=== PATIENT | male | born 1950 | race Caucasian/White ===

== ENCOUNTER 2016-10-29 19:49 | Emergency (ER) | payer OTHER ==
[~2016-10-29] VITALS: Ht 180.3 cm; Wt 114.2 kg
[~2016-10-29 19:49] MED LIST: ALL300 PO; ASPEC81 PO; ATEN-173 PO; MELO15TA3 PO; NTRGSL/4 UT
[2016-10-29 20:02] VITALS: TEMP 36.5; Ht 180.3 cm; Wt 114.2 kg
[2016-10-29] MEDS ORDERED: CHOL1000 PO (21:01)
[2016-10-29 21:06] VITALS: O2SAT 94
--- NOTE | 2016-10-29 21:26 | DIAGNOSTIC IMAGING REPORT ---
CHEST ONE VIEW PORTABLE CLINICAL HISTORY: cough COMPARISON STUDY: No previous studies for comparison. FINDINGS: The heart is mildly enlarged. There is mild central vascular prominence. There is no overt edema. There is no lobar consolidation. There is a lower left paraspinal opacity, possibly representing a tortuous aorta, although other etiologies cannot be excluded[ IMPRESSION: AP portable study. Mild vascular prominence without evidence of overt edema. No evidence of focal pulmonary consolidation. Nonspecific left paraspinal opacity, possibly secondary to a tortuous aorta Electronically signed by: Pancho Bloom M.D. 10/29/2016 9:25 PM Dictated Date/Time: 10/29/2016 9:23 PM
[2016-10-29] MEDS ORDERED: ALBUT/IPRATROP 3MG/0.5MG NEB 3 ML VIAL INH STA (21:31)
[2016-10-29 21:34] LABS: BASO % 0.4 %; BASO ABS # 0.04 K/uL (0-0.2); COMPLETE YES; EOS % 4.3 %; HEMATOCRIT 47.2 % (42-52); IG% 0.2 %; LYMPH % 27.4 %; LYMPH ABS # 2.88 K/uL (1.2-3.4); MEAN CELL VOLUME 86.4 fL (80-100); MEAN CORPUSCULAR HEMOGLOBIN 31.5 pg (25-34); MEAN CORPUSCULAR HGB CONC 36.4 g/dl (32-36); MEAN PLATELET VOLUME 11.2 fL (7.4-10.4); MONO % 8.3 %; NEUT % 59.4 %; PLATELET COUNT 192 K/uL (130-400); RED BLOOD COUNT 5.46 M/uL (4.7-6.1); WHITE BLOOD COUNT 10.52 K/uL (4.8-10.8)
[2016-10-29 21:51] LABS: ALB/GLOB RATIO 0.9 (0.9-2); ALKALINE PHOSPHATASE 111 U/L (45-117); ALT/SGPT 30 U/L (12-78); AST/SGOT 25 U/L (15-37); BLOOD UREA NITROGEN 16 mg/dl (7-18); BUN/CREATININE RATIO 14.8 (10-20); CALCIUM 9.3 mg/dl (8.5-10.1); CARBON DIOXIDE 29 mmol/L (21-32); CHLORIDE 102 mmol/L (98-107); GLUCOSE 139 mg/dl (70-99); POTASSIUM 3.8 mmol/L (3.5-5.1); SODIUM 140 mmol/L (136-145)
[2016-10-29] MEDS ORDERED: ALBUTEROL HFA 8 GM INHALER INH ONE (23:45)
[2016-10-29] MEDS ORDERED: AMOXICIL/CLAVU 875MG HOME PACK PO ONE (23:59)
[2016-10-30] MEDS ORDERED: AMOXICILLIN/CLAVULANATE TAB 875 MG TAB PO ONE ×2 (00:03→09:00)
[2016-10-30] MEDS ORDERED: AMOX875T PO (00:17)
[2016-10-30 00:33] VITALS: BP 154/85; PULSE 74; O2SAT 95
--- NOTE | 2016-10-30 02:37 | EMERGENCY ROOM VISIT NOTE ---
History Report prepared by Aditi: Familia Rae Under the Supervision of: Dr. Rudy Aleman M.D. First contact with patient: 21:09 Chief Complaint: COUGH Stated Complaint: BLOOD,MUCOUS COUGH, History of Present Illness The patient is a 66 year old male who presents to the Emergency Room with complaints of a constant worsening cough for the past few weeks. The patient additionally states that the cough and shortness of breath is worse in the morning, and he has some chest pain only during his coughing spells. Also, he states that he is coughing up some blood in the mucous that he is producing. The patient states that he has not seen anyone for the cough yet. Pt denies LOC , headache, fevers, chills, diaphoresis, visual changes, neck pain, nausea, vomiting, abdominal pain, back pain, diarrhea, melena, hematochezia, urinary symptoms, numbness, weakness, lymphadenopathy, rash, or other complaints. Source of History: patient Onset: a few weeks ago Position: other (global) Quality: other (cough) Timing: constant, worsening Associated Symptoms: + SOB, + chest pain Review of Systems See HPI for pertinent positives and negatives. A total of ten systems were reviewed and were otherwise negative. Past Medical & Surgical Medical Problems: (1) Hypertension Social History Smoking Status: Never Smoker Marital Status: Housing Status: lives with family Occupation Status: retired Current/Historical Medications Scheduled Allopurinol (Zyloprim *), 300 MG PO DAILY Amoxicillin & Pot Clavulanate (Augmentin 875-125 mg), 875 MG PO BID Aspirin Enteric Coated (Ecotrin Or Generic *), 81 MG PO DAILY Atenolol (Tenormin), 25 MG PO DAILY Cholecalciferol (Vitamin D3), 1,000 MG PO DAILY Meloxicam (Mobic), 15 MG PO DAILY Nitroglycerin (Nitrostat), 0.4 MG UT PRN Allergies Coded Allergies: No Known Allergies (Unverified , 10/29/16) Physical Exam Vital Signs Date Time Temp Pulse Resp B/P Pulse Ox O2 Delivery O2 Flow Rate FiO2 10/30/16 00:33 74 20 154/85 95 10/29/16 23:08 77 10/29/16 23:03 79 20 149/76 95 10/29/16 22:34 83 15 96 Room Air 10/29/16 22:29 80 21 97 10/29/16 22:24 76 17 94 10/29/16 22:19 78 19 95 10/29/16 22:14 79 22 94 10/29/16 22:09 81 22 94 10/29/16 22:04 74 13 96 10/29/16 21:59 73 19 98 10/29/16 21:54 70 19 98 10/29/16 21:49 69 13 98 10/29/16 21:44 71 17 99 10/29/16 21:43 72 20 99 Nebulizer 10/29/16 21:39 76 25 96 Room Air 10/29/16 21:34 75 21 96 Room Air 10/29/16 21:29 74 23 97 Room Air 10/29/16 21:24 75 19 96 Room Air 10/29/16 21:06 94 Room Air 10/29/16 21:05 133/64 10/29/16 21:04 79 18 133/64 10/29/16 20:05 93 Room Air 10/29/16 20:02 36.5 74 22 146/71 96 Room Air Physical Exam GENERAL: Awake, alert, tired-appearing, in no distress HENT: Normocephalic, atraumatic. Oropharynx unremarkable. EYES: Normal conjunctiva. Sclera non-icteric. NECK: Supple. No nuchal rigidity. FROM. No JVD. RESPIRATORY: Clear to auscultation. CARDIAC: Regular rate, normal rhythm. Extremities warm and well perfused. Pulses equal. ABDOMEN: Soft, non-distended. No tenderness to palpation. No rebound or guarding. No masses. RECTAL: Deferred. MUSCULOSKELETAL: Chest examination reveals no tenderness. The back is symmetrical on inspection without obvious abnormality. There is no CVA tenderness to palpation. No joint edema. LOWER EXTREMITIES: Chronic venous discoloration. 1+ edema bilaterally worse on the right. NEURO: Normal sensorium. No sensory or motor deficits noted. SKIN: No rash or jaundice noted. Medical Decision & Procedures ER Provider Diagnostic Interpretation: X-ray: Per my interpretation, radiologist review. CHEST ONE VIEW PORTABLE CLINICAL HISTORY: cough COMPARISON STUDY: No previous studies for comparison. FINDINGS: The heart is mildly enlarged. There is mild central vascular prominence. There is no overt edema. There is no lobar consolidation. There is a lower left paraspinal opacity, possibly representing a tortuous aorta, although other etiologies cannot be excluded[ IMPRESSION: AP portable study. Mild vascular prominence without evidence of overt edema. No evidence of focal pulmonary consolidation. Nonspecific left paraspinal opacity, possibly secondary to a tortuous aorta Electronically signed by: Pancho Bloom M.D. 10/29/2016 9:25 PM Dictated Date/Time: 10/29/2016 9:23 PM Laboratory Results 10/29/16 21:10 Red Blood Count 5.46, Mean Corpuscular Volume 86.4, Mean Corpuscular Hemoglobin 31.5, Mean Corpuscular Hemoglobin Concent 36.4, Mean Platelet Volume 11.2, Neutrophils (%) (Auto) 59.4, Lymphocytes (%) (Auto) 27.4, Monocytes (%) (Auto) 8.3, Eosinophils (%) (Auto) 4.3, Basophils (%) (Auto) 0.4, Neutrophils # (Auto) 6.26, Lymphocytes # (Auto) 2.88, Monocytes # (Auto) 0.87, Eosinophils # (Auto) 0.45, Basophils # (Auto) 0.04 10/29/16 21:10 Test 10/29/16 21:10 White Blood Count 10.52 K/uL (4.8-10.8) Red Blood Count 5.46 M/uL (4.7-6.1) Hemoglobin 17.2 g/dL (14.0-18.0) Hematocrit 47.2 % (42-52) Mean Corpuscular Volume 86.4 fL (80-100) Mean Corpuscular Hemoglobin 31.5 pg (25-34) Mean Corpuscular Hemoglobin Concent 36.4 g/dl (32-36) Platelet Count 192 K/uL (130-400) Mean Platelet Volume 11.2 fL (7.4-10.4) Neutrophils (%) (Auto) 59.4 % Lymphocytes (%) (Auto) 27.4 % Monocytes (%) (Auto) 8.3 % Eosinophils (%) (Auto) 4.3 % Basophils (%) (Auto) 0.4 % Neutrophils # (Auto) 6.26 K/uL (1.4-6.5) Lymphocytes # (Auto) 2.88 K/uL (1.2-3.4) Monocytes # (Auto) 0.87 K/uL (0.11-0.59) Eosinophils # (Auto) 0.45 K/uL (0-0.5) Basophils # (Auto) 0.04 K/uL (0-0.2) RDW Standard Deviation 42.6 fL (36.4-46.3) RDW Coefficient of Variation 13.6 % (11.5-14.5) Immature Granulocyte % (Auto) 0.2 % Immature Granulocyte # (Auto) 0.02 K/uL (0.00-0.02) Anion Gap 9.0 mmol/L (3-11) Est Creatinine Clear Calc Drug Dose 82.6 ml/min Estimated GFR () 79.5 Estimated GFR (Non- 68.6 BUN/Creatinine Ratio 14.8 (10-20) Calcium Level 9.3 mg/dl (8.5-10.1) Total Bilirubin 0.5 mg/dl (0.2-1) Aspartate Amino Transf (AST/SGOT) 25 U/L (15-37) Alanine Aminotransferase (ALT/SGPT) 30 U/L (12-78) Alkaline Phosphatase 111 U/L (45-117) Troponin I < 0.015 ng/ml (0-0.045) Total Protein 7.8 gm/dl (6.4-8.2) Albumin 3.7 gm/dl (3.4-5.0) Globulin 4.1 gm/dl (2.5-4.0) Albumin/Globulin Ratio 0.9 (0.9-2) Chemistry Specimen Hemolysis Influenza Type A Antigen Neg for Influ A (NEG) Influenza Type B Antigen Neg for Influ B (NEG) Laboratory results reviewed by me Medications Administered Medications (Trade) Dose Ordered Sig/Rashid Route Start Time Stop Time Status Last Admin Dose Admin Albuterol/ Ipratropium (Duoneb) 3 ml NOW STAT INH 10/29/16 21:31 10/29/16 21:43 DC 10/29/16 21:42 3 ML Albuterol (Ventolin Hfa Inhaler) 2 puffs NOW ONCE INH 10/29/16 23:45 10/29/16 23:46 DC 10/29/16 23:45 2 PUFFS Amoxicillin/ Clavulanate Potassium (Augmentin Tab) 875 mg BID ONCE PO 10/30/16 09:00 10/30/16 09:00 DC 10/30/16 00:09 875 MG ED Course 2129: The patient was evaluated in room A12. A complete history and physical exam was performed. 2131: Duoneb 3ml INH 2341: I reevaluated the patient, and he was feeling better after breathing treatment. I discussed results and discharge instructions: He verbalized understanding and agreement. The patient is ready for discharge. 2345: Albuterol 2 puffs INH 0900: Augmentin Tab 875mg PO Medical Decision Triage Nursing notes reviewed. The patient's presentation and history were concerning for productive cough. Etiologies such as influenza, bronchitis, pneumonia, COPD, reactive airway disease, CHF, cardiac ischemia, pulmonary embolism, pneumothorax, musculoskeletal, infections, gastrointestinal, as well as others were entertained. The patient was evaluated. Hemodynamically stable. He had a thick yellow mucus that was occasionally blood tinged when he was coughing. He produced tiny sample in the emergency department here. He was given a DuoNeb and felt much better with this. The patient underwent chest x-ray imaging. There was some congestion noted but no significant infiltrate present. His CBC , chemistry panel, and influenza testing were negative. Troponin was negative. This was ordered and protocol prior to evaluation of the patient. His symptoms are not consistent with a cardiac etiology therefore additional cardiac testing was not performed. Given the symptoms I discussed treatment with Augmentin and Ventolin MDI. The patient felt comfortable with this. He will follow-up with his primary physician. If he worsens he will come back to the emergency department for reevaluation. By the evaluation outlined above other emergent etiologies such as those listed in the differential, as well as others, were deemed relatively unlikely. The patient and were informed about the findings as listed above. All questions were answered and they were d with the treatment. Return instructions were outlined and the patient was discharged in stable condition. The patient was referred to his PCP for follow-up this week for a recheck of the current condition. The chart was completed utilizing [employer] Speech voice recognition software. Grammatical errors, random word insertions, pronoun errors, and incomplete sentences are an occasional consequence of this system due to software limitations, ambient noise, and hardware issues. Any formal questions or concerns about the content, text, or information contained within the body of this dictation should be directly addressed to the physician for clarification. Impression Primary Impression: Productive cough Additional Impression: Flu-like symptoms Scribe Attestation The scribe's documentation has been prepared under my direction and personally reviewed by me in its entirety. I confirm that the note above accurately reflects all work, treatment, procedures, and medical decision making performed by me. Departure Information Dispostion Home / Self-Care Prescriptions Amoxicillin & Pot Clavulanate (Augmentin 875-125 mg) 1 Tab Tab 875 MG PO BID for 7 Days, #14 TAB Prov: Rudy Aleman MD 10/30/16 Referrals Asad Schaefer M.D. (PCP) Forms HOME CARE DOCUMENTATION FORM, IMPORTANT VISIT INFORMATION Patient Instructions My [facility] Additional Instructions Amoxicillin Clavulanate (Augmentin) 875mg: Take one pill twice daily for 7 days for your infection. All antibiotics can cause diarrhea. If this occurs and you feel worse or it does not resolve in 1-2 days follow up with your doctor or return to the Emergency Department as this could be signs of serious underlying problems. Any medication can cause an allergic reaction, stop the pills immediately and return to the ER for rash, hives, breathing difficulties, or swelling. Albuterol Inhaler: Take 2 puffs four times daily for seven days, then as needed. Acetaminophen(Tylenol) may be used for fever or pain. Use 1000mg every six hours as needed. Avoid using more than 4000mg in a 24 hour period. AND/OR Ibuprofen(Motrin, Advil) may be used for fever or pain. Use 600mg every six hours as needed. Take with food. Avoid using more than 2400mg in a 24 hour period. Do not use 2400mg per day for more than three consecutive days without physician direction. Prolonged inappropriate use can lead to stomach upset or ulcers. Controlling your fever with Tylenol and Ibuprofen as above will make you feel better. Rest and drink plenty of fluids. Avoid strenuous activity until your symptoms resolve and your breathing returns to normal. Return to the ER for chest pain, difficulty breathing, persistent fevers, vomiting, worsening of your condition, or as needed. Follow up with your primary physician in 2-3 days for a recheck of the current condition. Problem Qualifiers
== END 2016-10-30 00:34 | disposition home or self-care (01) ==
LOC: C.EDB 19:51 → C.EDA 10-30 00:34
DX: R05 Cough (principal); R69 Illness, unspecified; I10 Essential (primary) hypertension; Z79.82 Long term (current) use of aspirin

== ENCOUNTER 2019-07-22 09:58 | Observation (INO) ==
[2019-07-22] MEDS ORDERED: NITROGLYCERIN 2% OINTMENT 30GM TUBE EXT STA (11:06)
[2019-07-22] MEDS ORDERED: ASPIRIN CHEW 324 MG PO STA (11:06)
--- NOTE | 2019-07-22 11:42 | XRay Report ---
XR chest 1V portable CLINICAL HISTORY: 69 years-old Male presenting with Chest Pain. TECHNIQUE: Portable upright AP view of the chest was obtained. COMPARISON: 10/29/2016. FINDINGS: Atherosclerosis of the aortic arch. Cardiac silhouette enlarged. Mild pulmonary vascular prominence. There may also be mild interstitial prominence and bronchial cuffing. Minimal bandlike opacity in the left lower lung. No other focal opacity. No large effusion or pneumothorax. Degenerative changes of the thoracic spine. IMPRESSION: 1. Cardiomegaly with mild volume overload and congestive change. No sindy pulmonary edema. 2. Minimal left basilar atelectasis or scarring. Electronically signed by: José Miguel Gilbert M.D. 07/22/2019 11:41 AM
[2019-07-22 11:55] LABS: Basophils # (auto) 0.02 K/uL (0-0.2); Basophils % (auto) 0.2 %; Eosinophils # (auto) 0.36 K/uL (0-0.5); Eosinophils % (auto) 3.2 %; Hematocrit (blood only) 47.7 % (42-52); Hemoglobin 17.2 g/dL (14.0-18.0); Immature Granulocytes # (auto) 0.02 K/uL (0.00-0.02); Immature Granulocytes % (auto) 0.2 %; Lymphocytes # (auto) 2.42 K/uL (1.2-3.4); Lymphocytes % (auto) 21.7 %; Mean Corpuscular Hemoglobin 31.7 pg (25-34); Mean Corpuscular Hgb Conc 36.1 g/dL (32-36); Mean Platelet Volume 11.3 fL (7.4-10.4); Monocytes # (auto) 0.76 K/uL (0.11-0.59); Monocytes % (auto) 6.8 %; Neutrophils # (auto) 7.55 K/uL (1.4-6.5); Neutrophils % (auto) 67.9 %; Platelet Count 213 K/uL (130-400); RDW Coefficient of Variation 13.6 % (11.5-14.5); RDW Standard Deviation 43.6 fL (36.4-46.3); Red Blood Count 5.42 M/uL (4.7-6.1); White Blood Count 11.13 K/uL (4.8-10.8)
[2019-07-22 12:07] LABS: INR 1.2 (0.9-1.1); Partial Thromboplastin Time 27.3 Seconds (21.0-31.0); Prothrombin Time 11.8 Seconds (9.0-12.0)
[2019-07-22 12:17] LABS: Alanine Aminotransferase 35 U/L (12-78); Aspartate Aminotransferase 24 U/L (15-37); BUN Creatinine Ratio 14.1 (10-20); Blood Urea Nitrogen 16 mg/dl (7-18); Calcium 9.9 mg/dl (8.5-10.1); Carbon Dioxide 31 mmol/L (21-32); Chloride 102 mmol/L (98-107); Creatinine Clr Calc Pharmacy 76.6 ml/min; Est GFR (Non-African American) 66.5; Glucose 123 mg/dl (70-99); Lipase 103 U/L (73-393); Potassium 3.8 mmol/L (3.5-5.1); Sodium 138 mmol/L (136-145)
[2019-07-22 12:21] LABS: Albumin Globulin Ratio 0.9 (0.9-2); Alkaline Phosphatase 133 U/L (45-117); Bilirubin,Total 1.2 mg/dl (0.2-1); Globulin 4.3 gm/dl (2.5-4.0); Total Protein 8.3 gm/dl (6.4-8.2); Troponin I < 0.015 ng/ml (0-0.045)
--- NOTE | 2019-07-22 14:23 | History & Physical Report ---
Date of Service July 22, 2019 Assessment & Plan (1) Chest pain: (2) CAD (coronary artery disease): -Admit to telemetry -Patient presenting from home with reports of worsening exertional chest pain for the past 1 week -In the ED, initial troponin negative and EKG does not show any acute ST changes -Cardiac cath 2010-nonobstructive CAD, stress echo 11/2018-negative for ischemia -Currently chest pain-free after application of topical nitro in the ED -Continue serial cardiac enzymes, resting echo -Continue topical nitro, statin, aspirin, beta-freda, ARB -Cardiology consult, Dr. Rawls notified by ED (3) Hypertension: -BP controlled, continue carvedilol, HCTZ, losartan (4) Moderate aortic valve stenosis: -Stable -Monitor volume status closely (5) KEHINDE on CPAP: -CPAP as per home settings (6) Gout: -Continue allopurinol (7) DVT prophylaxis: -SQ Lovenox History of Present Illness Chief Complaint: Chest Pain Primary Care Provider: Asad Schaefer MD 69 year old male who presents to the ED with reports of chest pain. Patient reports that he was having URI symptoms for about 6 weeks. The productive cough has resolved however patient developed chest pain over the past week. He described the pain as being located midsternum with some radiation into the left chest. Patient noted the pain to be worse while he was "doing chores" and while hunting. Pain was severe at times with radiation into the left arm and jaw at times. He had associated diaphoresis. Describes the pain as burning and aching. Has chronic exertional shortness of breath which is unchanged from baseline. Denies orthopnea and lower extremity edema. No abdominal pain, nausea, vomiting, or diarrhea. Denies fever and chills. No urinary symptoms. In the ED, topical nitro was placed on the patient and he reports he is pain free. He was also given a full dose aspirin. Initial troponin is negative, EKG does not show any acute ST changes. Patient is hemodynamically stable. Allergies Allergy/AdvReac Type Severity Reaction Status Date / Time No Known Allergies Allergy Unverified 07/22/19 11:30 Home Medications Home Medications Medication Instructions Recorded Confirmed Type allopurinol 100 mg PO DAILY 07/22/19 07/22/19 History allopurinol 300 mg PO QAM 07/22/19 07/22/19 History aspirin 81 mg PO QAM 07/22/19 07/22/19 History atorvastatin 20 mg PO HS 07/22/19 07/22/19 History carvedilol 12.5 mg PO BID 07/22/19 07/22/19 History cholecalciferol (vitamin D3) 1,000 unit PO QAM 07/22/19 07/22/19 History [Vitamin D3] citalopram 20 mg PO QAM 07/22/19 07/22/19 History hydrochlorothiazide 25 mg PO QAM 07/22/19 07/22/19 History losartan 50 mg PO QAM 07/22/19 07/22/19 History nitroglycerin 0.4 mg SUBLINGUAL UD PRN 07/22/19 07/22/19 History Past Med/Surg History Medical History CAD (coronary artery disease) Cardiac cath 2010 -nonobstructive CAD CKD (chronic kidney disease), stage II Dyslipidemia Gout Hypertension Moderate aortic valve stenosis KEHINDE on CPAP Surgical History H/O cervical spine surgery H/O repair of left rotator cuff Hx of tonsillectomy Family History (Updated 07/22/19 @ 14:18 by EDNA Velasquez) Mother Heart disease Father Stroke Other Family history non-contributory Social History (Updated 07/22/19 @ 14:19 by EDNA Velasquez) Preferred Language: Maltese Communication Ability: Effective Receiving Operator Required: No Beliefs That Will Affect Care: None Current Living Situation: Spouse Other Information That Helps Us Care for You: No Feels Safe at Home: Yes Safety Concerns: Feels Safe At This Time Smoking Status: Never smoker Hx Alcohol Use: Yes Alcohol type: beer Alcohol Intake Frequency: Weekly Alcohol Intake Frequency Comment: ~ 5 beers/week Hx Substance Use: No Review of Systems Review of Systems: ROS per HPI, all other systems reviewed and negative Physical Exam Constitutional: WD/WN, vitals as above Eyes: PERRL, conjunctivae normal, anicteric sclerae ENMT: external ear and nose normal, oropharynx normal Respiratory: normal respiratory effort, lungs clear to auscultation Cardiovascular: Rate/Rhythm: regular rate and regular rhythm Heart Sounds: + murmur (systolic) Vessels: normal peripheral pulses Extremities: no edema Gastrointestinal (Abdomen): normal bowel sounds, soft, nontender, no hepatosplenomegaly Musculoskeletal: no cyanosis or clubbing, extremities motor strength 5/5 Skin: no rashes, warm and dry Neurologic: PERRL, EOMI, accommodation nl, no face palsy, no dysarthria Psychiatric: A+Ox3, euthymic affect Results & Data Vital Signs (Past 12 Hours) Vital Signs Temp Pulse Pulse Resp BP BP Pulse Ox 07/22/19 13:30 63 21 143/76 H 98 07/22/19 13:15 65 21 134/75 98 07/22/19 13:00 64 19 138/76 98 07/22/19 12:55 63 18 150/78 H 99 07/22/19 12:45 63 28 H 134/80 98 07/22/19 12:30 64 17 137/80 97 07/22/19 12:15 63 20 128/79 99 07/22/19 12:00 63 16 137/78 98 07/22/19 11:46 98 07/22/19 11:45 59 L 20 139/82 98 07/22/19 10:03 36.5 C 62 20 165/95 H 99 Laboratory Results Short CBC 07/22/19 Range/Units 11:29 WBC 11.13 H (4.8-10.8) K/uL Hgb 17.2 (14.0-18.0) g/dL Hct 47.7 (42-52) % Plt Count 213 (130-400) K/uL BMP 07/22/19 11:29 Sodium 138 Potassium 3.8 Chloride 102 Carbon Dioxide 31 BUN 16 Creatinine 1.11 Glucose 123 H Calcium 9.9 Cardiac Enzymes 07/22/19 Range/Units 11:29 Troponin I < 0.015 (0-0.045) ng/ml Liver Function 07/22/19 Range/Units 11:29 Total Bilirubin 1.2 H (0.2-1) mg/dl AST 24 (15-37) U/L ALT 35 (12-78) U/L Alkaline Phosphatase 133 H (45-117) U/L Albumin 4.0 (3.4-5.0) gm/dl Diagnostic Findings Short CBC 07/22/19 Range/Units 11:29 WBC 11.13 H (4.8-10.8) K/uL Hgb 17.2 (14.0-18.0) g/dL Hct 47.7 (42-52) % Plt Count 213 (130-400) K/uL BMP 07/22/19 11:29 Sodium 138 Potassium 3.8 Chloride 102 Carbon Dioxide 31 BUN 16 Creatinine 1.11 Glucose 123 H Calcium 9.9 Cardiac Enzymes 07/22/19 Range/Units 11:29 Troponin I < 0.015 (0-0.045) ng/ml Liver Function 07/22/19 Range/Units 11:29 Total Bilirubin 1.2 H (0.2-1) mg/dl AST 24 (15-37) U/L ALT 35 (12-78) U/L Alkaline Phosphatase 133 H (45-117) U/L Albumin 4.0 (3.4-5.0) gm/dl Code Status & VTE Plan VTE Prophylaxis Plan VTE Prophylaxis will be ordered: Yes Supervising Physician Co-Signing Physician Notes Patient is a 69-year-old male with history of hypertension, KEHINDE, gout, hyperlipidemia, coronary artery disease, CKD and other problems presents with history of retrosternal chest pain radiating to bilateral upper arms and jaw intermittently. Reports associated diaphoresis and exertional shortness of breath. Chest pain improved with nitroglycerin in ED. Initial cardiac enzymes are negative. Mild leukocytosis noted on labs, but no clear source of infection. He recently is recovering from URI. He denies any recent antibiotic use. EKG showed normal sinus rhythm, p nonspecific T wave abnormality. On exam patient is moderately built and nourished, no apparent distress, normocephalic atraumatic, lungs are clear to auscultation, S1-S2, systolic murmur, no pedal edema, abdomen soft nontender, grossly no focal neurological deficits. Patient is admitted for management of chest pain rule out ACS. Plan to trend cardiac enzymes, check resting echo, n.p.o. after midnight, repeat EKG in a.m. Continue aspirin, beta-freda, statin. Also check lipid panel, TSH. Cardiology consulted. I personally reviewed the record. Patient is interviewed and examined at bedside. Patient's care is coordinated with Angela Jolly CONCIERGE MANAGER. Please refer to the documentation above for details of patient's presentation and for discussion of other issues.
[2019-07-22] MEDS ORDERED: NITROGLYCERIN SL 0.4 MG/TAB TAB SL PRN (14:56)
[2019-07-22] MEDS ORDERED: ACETAMINOPHEN 325 MG TAB PO PRN (14:56)
[2019-07-22] MEDS: NITROGLYCERIN 2% OINTMENT 30GM TUBE EXT SCH (17:56)
--- NOTE | 2019-07-22 18:16 | Emergency Department Note ---
Entered by Krishna Stark acting as a scribe for History of Present Illness General Chief complaint: Chest Pain Stated complaint: HEART BLOCKAGE, SENT BY DR Pearson Seen by Provider: 07/22/19 11:00 Source: patient History of Present Illness Provider complaint: Chest pain Onset (ago): week(s) (Couple of weeks) Location: chest Radiation: extremity and other (Jaw) Severity: similar to prior episodes Pain Consistency: + constant Maximum Pain Intensity: 5 Current Pain Intensity: 5 Quality: + burning Relieved By: + rest Exacerbated By: + other (Exertion) Associated symptoms: + nausea/vomiting (No vomiting) and + shortness of breath; no diaphoresis The patient is a 69 year old male who presents to the Emergency Room after being sent from the [facility] with complaints of constant chest pain that started a couple of weeks ago. The patient rates the pain as a 5/10 and notes it sometimes radiates into his left arm and left jaw. The patient endorses shortness of breath with the chest pain and states that they are both worse with exertion. He also has mild nausea when his symptoms are exacerbated but he denies any diaphoretic episodes. The patient explained that last night he had to carry heavy garbage bags which induced his symptoms. He adds that his symptoms do improve after about 15-30 minutes of rest. The patient does take a baby Aspirin daily and follows up with cardiology for a history of a murmur (from rheumatic fever) and angina. Per the patient's , the patient had an incident of angina years ago that caused him to be admitted to the ICU. The patient has no history of RI. Home Medications Home Medications Medication Instructions Recorded Confirmed Type allopurinol 100 mg PO DAILY 07/22/19 07/22/19 History allopurinol 300 mg PO QAM 07/22/19 07/22/19 History aspirin 81 mg PO QAM 07/22/19 07/22/19 History atorvastatin 20 mg PO HS 07/22/19 07/22/19 History carvedilol 12.5 mg PO BID 07/22/19 07/22/19 History cholecalciferol (vitamin D3) 1,000 unit PO QAM 07/22/19 07/22/19 History [Vitamin D3] citalopram 20 mg PO QAM 07/22/19 07/22/19 History hydrochlorothiazide 25 mg PO QAM 07/22/19 07/22/19 History losartan 50 mg PO QAM 07/22/19 07/22/19 History nitroglycerin 0.4 mg SUBLINGUAL UD PRN 07/22/19 07/22/19 History Allergies Allergy/AdvReac Type Severity Reaction Status Date / Time No Known Allergies Allergy Unverified 07/22/19 11:30 Past Med/Surg History Medical History CAD (coronary artery disease) Cardiac cath 2010 -nonobstructive CAD CKD (chronic kidney disease), stage II Dyslipidemia Gout Hypertension Moderate aortic valve stenosis KEHINDE on CPAP Surgical History H/O cervical spine surgery H/O repair of left rotator cuff Hx of tonsillectomy Family History (Updated 07/22/19 @ 14:18 by EDNA Velasquez) Mother Heart disease Father Stroke Other Family history non-contributory Social History (Updated 07/22/19 @ 14:19 by EDNA Velasquez) Preferred Language: Hungarian Communication Ability: Effective Maintenance Repairman Required: No Beliefs That Will Affect Care: None Current Living Situation: Spouse Other Information That Helps Us Care for You: No Feels Safe at Home: Yes Safety Concerns: Feels Safe At This Time Smoking Status: Never smoker Hx Alcohol Use: Yes Alcohol type: beer Alcohol Intake Frequency: Weekly Alcohol Intake Frequency Comment: ~ 5 beers/week Hx Substance Use: No Review of Systems See HPI for pertinent positives & negatives. and A total of 10 systems reviewed and were otherwise negative Physical Exam Vital Signs Vital Signs - 24 hr 07/22/19 10:03 07/22/19 11:45 07/22/19 11:46 Temperature 36.5 C Temperature Source Oral Pulse Rate 62 Pulse Rate [Left] 59 L Pulse Rate from SpO2 Sensor Pulse Rhythm [Left] Regular Respiratory Rate 20 20 Respiratory Effort / Characteristics Non-Labored Respiratory Depth Normal Respiratory Pattern Regular Blood Pressure 165/95 H Blood Pressure [Left Arm] 139/82 Blood Pressure Mean 118 Blood Pressure Mean [Left Arm] 101 Pulse Oximetry 99 98 98 Oxygen Delivery Method Room Air Room Air Room Air Sepsis Recent Fever Within 48 Hours No Sepsis New/Unexplained Change in Mental Status No Sepsis Action Taken by Nursing No Action Required 07/22/19 12:00 07/22/19 12:15 07/22/19 12:30 Temperature Temperature Source Pulse Rate 63 63 64 Pulse Rate [Left] Pulse Rate from SpO2 Sensor 63 63 63 Pulse Rhythm [Left] Respiratory Rate 16 20 17 Respiratory Effort / Characteristics Respiratory Depth Respiratory Pattern Blood Pressure 137/78 128/79 137/80 Blood Pressure [Left Arm] Blood Pressure Mean 107 104 94 Blood Pressure Mean [Left Arm] Pulse Oximetry 98 99 97 Oxygen Delivery Method Sepsis Recent Fever Within 48 Hours Sepsis New/Unexplained Change in Mental Status Sepsis Action Taken by Nursing 07/22/19 12:45 07/22/19 12:55 07/22/19 13:00 Temperature Temperature Source Pulse Rate 63 63 64 Pulse Rate [Left] Pulse Rate from SpO2 Sensor 64 63 64 Pulse Rhythm [Left] Respiratory Rate 28 H 18 19 Respiratory Effort / Characteristics Respiratory Depth Respiratory Pattern Blood Pressure 134/80 150/78 H 138/76 Blood Pressure [Left Arm] Blood Pressure Mean 94 90 100 Blood Pressure Mean [Left Arm] Pulse Oximetry 98 99 98 Oxygen Delivery Method Sepsis Recent Fever Within 48 Hours Sepsis New/Unexplained Change in Mental Status Sepsis Action Taken by Nursing 07/22/19 13:15 07/22/19 13:30 Temperature Temperature Source Pulse Rate 65 63 Pulse Rate [Left] Pulse Rate from SpO2 Sensor 65 63 Pulse Rhythm [Left] Respiratory Rate 21 21 Respiratory Effort / Characteristics Respiratory Depth Respiratory Pattern Blood Pressure 134/75 143/76 H Blood Pressure [Left Arm] Blood Pressure Mean 96 92 Blood Pressure Mean [Left Arm] Pulse Oximetry 98 98 Oxygen Delivery Method Sepsis Recent Fever Within 48 Hours Sepsis New/Unexplained Change in Mental Status Sepsis Action Taken by Nursing GENERAL: Patient is in no acute distress. HEENT: No acute trauma, normocephalic atraumatic, mucous membranes moist, no nasal congestion, no scleral icterus. NECK: No stridor, no adenopathy, no meningismus, trachea is midline. LUNGS: Clear to auscultation bilaterally, no wheeze, no rhonchi, breath sounds equal. HEART: 2/6 systolic murmur heard best at the right sternal border. Regular rate and rhythm. ABDOMEN: Soft, nontender, bowel sounds positive, no hernias, no peritonitis. EXTREMITIES: No cyanosis, full range of motion of all the joints without pain or difficulty, no signs for acute trauma. Mild bilateral pedal edema. NEUROLOGIC: Oriented x 3, no acute motor or sensory deficits, no focal weakness. SKIN: No rash, no jaundice, no diaphoresis. Course Course 1105: Past medical records reviewed. The patient was evaluated in room C02B, and a complete history and physical examination were performed. 1238: I spoke to Dr. Sinai Garsia about the patient's case. He recommended keeping the patient in the hospital for further work up. 1240: I reevaluated the patient and updated him on the treatment plan. He is agreeable with the plan. 1245: I discussed the patient's case with Denise PATEL who is working under Dr. Arleen De La Torre. They agreed to accept the patient for further evaluation. Consultations Consultation #1: I spoke to Dr. Sinai Garsia about the patient's case. He recommended keeping the patient in the hospital for further work up. Time: 12:38 Consultation #2: I discussed the patient's case with Denise PATEL who is working under Dr. Arleen De La Torre. They agreed to accept the patient for further evaluation. Time: 12:45 Administered Medications Nitroglycerin (Nitro-Bid 2%) 1 inch EXT Q6 VIOLETA Stop: 08/21/19 17:59 Last Admin: 07/22/19 17:56 Dose: 1 inch Documented by: [id number] Discontinued Medications Aspirin (Aspirin) 324 mg PO NOW STA Stop: 07/22/19 11:07 Last Admin: 07/22/19 11:49 Dose: 324 mg Documented by: [id number] Nitroglycerin (Nitro-Bid 2%) 1 inch EXT NOW STA Stop: 07/22/19 11:07 Last Admin: 07/22/19 11:49 Dose: 1 inch Documented by: [id number] Medical Decision Making Differential Diagnosis Differential Diagnosis includes: Angina, RI, anemia, electrolyte imbalance, aortic dissection, CHF, and PE, amongst others. Medical Records Attestation: I reviewed the patient's medical records. Home Medications Current Medication List: was personally reviewed by me Laboratory Data Attestation: I reviewed the patient's lab results. Result diagrams: 07/22/19 11:29 07/22/19 11:29 Lab Results 07/22/19 07/22/19 07/22/19 Range/Units 11:29 11:29 11:29 WBC 11.13 H (4.8-10.8) K/uL RBC 5.42 (4.7-6.1) M/uL Hgb 17.2 (14.0-18.0) g/dL Hct 47.7 (42-52) % MCV 88.0 (80-100) fL MCH 31.7 (25-34) pg MCHC 36.1 H (32-36) g/dL RDW Std Deviation 43.6 (36.4-46.3) fL RDW Coeff of Sulaiman 13.6 (11.5-14.5) % Plt Count 213 (130-400) K/uL MPV 11.3 H (7.4-10.4) fL Immature Gran % (Auto) 0.2 % Neut % (Auto) 67.9 % Lymph % (Auto) 21.7 % [place] % (Auto) 6.8 % Eos % (Auto) 3.2 % Baso % (Auto) 0.2 % Immature Gran # (Auto) 0.02 (0.00-0.02) K/uL Neut # (Auto) 7.55 H (1.4-6.5) K/uL Lymph # (Auto) 2.42 (1.2-3.4) K/uL [place] # (Auto) 0.76 H (0.11-0.59) K/uL Eos # (Auto) 0.36 (0-0.5) K/uL Baso # (Auto) 0.02 (0-0.2) K/uL PT 11.8 (9.0-12.0) Seconds INR 1.2 H (0.9-1.1) APTT 27.3 (21.0-31.0) Seconds PTT Ratio 1.0 Sodium (136-145) mmol/L Potassium (3.5-5.1) mmol/L Chloride (98-107) mmol/L Carbon Dioxide (21-32) mmol/L Anion Gap (3-11) BUN (7-18) mg/dl Creatinine (0.6-1.4) mg/dl Est Cr Clr Drug Dosing ml/min Est GFR ( Amer) Est GFR (Non-Af Amer) BUN/Creatinine Ratio (10-20) Glucose (70-99) mg/dl Calcium (8.5-10.1) mg/dl Magnesium 1.8 (1.8-2.4) mg/dl Total Bilirubin (0.2-1) mg/dl AST (15-37) U/L ALT (12-78) U/L Alkaline Phosphatase (45-117) U/L Troponin I (0-0.045) ng/ml Total Protein (6.4-8.2) gm/dl Albumin (3.4-5.0) gm/dl Globulin (2.5-4.0) gm/dl Albumin/Globulin Ratio (0.9-2) Lipase (73-393) U/L 07/22/19 Range/Units 11:29 WBC (4.8-10.8) K/uL RBC (4.7-6.1) M/uL Hgb (14.0-18.0) g/dL Hct (42-52) % MCV (80-100) fL MCH (25-34) pg MCHC (32-36) g/dL RDW Std Deviation (36.4-46.3) fL RDW Coeff of Sulaiman (11.5-14.5) % Plt Count (130-400) K/uL MPV (7.4-10.4) fL Immature Gran % (Auto) % Neut % (Auto) % Lymph % (Auto) % [place] % (Auto) % Eos % (Auto) % Baso % (Auto) % Immature Gran # (Auto) (0.00-0.02) K/uL Neut # (Auto) (1.4-6.5) K/uL Lymph # (Auto) (1.2-3.4) K/uL [place] # (Auto) (0.11-0.59) K/uL Eos # (Auto) (0-0.5) K/uL Baso # (Auto) (0-0.2) K/uL PT (9.0-12.0) Seconds INR (0.9-1.1) APTT (21.0-31.0) Seconds PTT Ratio Sodium 138 (136-145) mmol/L Potassium 3.8 (3.5-5.1) mmol/L Chloride 102 (98-107) mmol/L Carbon Dioxide 31 (21-32) mmol/L Anion Gap 5.0 (3-11) BUN 16 (7-18) mg/dl Creatinine 1.11 (0.6-1.4) mg/dl Est Cr Clr Drug Dosing 76.6 ml/min Est GFR ( Amer) 77.0 Est GFR (Non-Af Amer) 66.5 BUN/Creatinine Ratio 14.1 (10-20) Glucose 123 H (70-99) mg/dl Calcium 9.9 (8.5-10.1) mg/dl Magnesium (1.8-2.4) mg/dl Total Bilirubin 1.2 H (0.2-1) mg/dl AST 24 (15-37) U/L ALT 35 (12-78) U/L Alkaline Phosphatase 133 H (45-117) U/L Troponin I < 0.015 (0-0.045) ng/ml Total Protein 8.3 H (6.4-8.2) gm/dl Albumin 4.0 (3.4-5.0) gm/dl Globulin 4.3 H (2.5-4.0) gm/dl Albumin/Globulin Ratio 0.9 (0.9-2) Lipase 103 (73-393) U/L Imaging Data Radiologist's Impression: Radiology results as stated below per my review and the radiologist's interpretation: XR chest 1V portable CLINICAL HISTORY: 69 years-old Male presenting with Chest Pain. TECHNIQUE: Portable upright AP view of the chest was obtained. COMPARISON: 10/29/2016. FINDINGS: Atherosclerosis of the aortic arch. Cardiac silhouette enlarged. Mild pulmonary vascular prominence. There may also be mild interstitial prominence and bronchial cuffing. Minimal bandlike opacity in the left lower lung. No other focal opacity. No large effusion or pneumothorax. Degenerative changes of the thoracic spine. IMPRESSION: 1. Cardiomegaly with mild volume overload and congestive change. No sindy pulmonary edema. 2. Minimal left basilar atelectasis or scarring. Electronically signed by: José Miguel Gilbert M.D. 07/22/2019 11:41 AM ECG Data Attestation: I personally reviewed and interpreted this ECG as follows: Indication: + chest pain Rate (beats per minute): 62 Rhythm: + normal sinus ECG Intervals/blocks: + Normal QT-c (436) ECG ST segments: no ST elevation ECG Findings: + Other (Old septal infarct); no PVCs Blood Pressure Blood Pressure Findings: Elevated blood pressure Blood Pressure Disposition: further management by hospitalist AMY Narrative There is a mild leukocytosis, this could be consistent with infection or just his pain. Platelet count was normal. No worrisome coagulopathy. No significant electrolyte abnormality or kidney failure. No concerning liver enzyme elevation. Lipase was normal. EKG shows a sinus rhythm, no acute ischemia. Cardiac enzyme testing x1 is not consistent with acute cardiac injury. Chest film does not show any sindy pulmonary edema, there was no pneumothorax or concerning mediastinal widening. The patient presents with exertional chest pain and dyspnea. The pain has radiated to his shoulder and neck. I do think further cardiac work-up is in order, he appears to have angina. The patient was given oral aspirin, he was given Nitropaste, he is currently resting comfortably. I spoke to the patient and case management. The on-call hospitalist has been consulted. I did speak with cardiology, they did recommend a hospital stay and further cardiac work-up. Impression & Plan Exertional chest pain, Shortness of breath Discharge Plan Visit Data *Final* Discharge Date/Time: 07/22/19 14:33 Chief Complaint: Chest Pain Stated Complaint: HEART BLOCKAGE, SENT BY DR AMATO Provider: Junior Aden Discharge Problem: Exertional chest pain, Shortness of breath Patient Disposition: Admitted As Inpatient Discharge Instructions Interventions: ED Discharge Assessment Last Done: 07/22/19 14:33 The scribe's documentation has been prepared under my direction and personally reviewed by me in its entirety. I confirm that the note above accurately reflects all work, treatment, procedures, and medical decision making performed by me.
[2019-07-22] MEDS: carvediloL 12.5 MG TAB PO SCH (21:16)
[2019-07-22] MEDS: ATORVASTATIN 20 MG TAB PO SCH (21:16)
[2019-07-22] MEDS: ENOXAPARIN INJ 40 MG/0.4 ML SYR SQ SCH (21:16)
[2019-07-23] MEDS: NITROGLYCERIN 2% OINTMENT 30GM TUBE EXT SCH ×2 (00:20→06:40)
[2019-07-23] MEDS ORDERED: TRAMADOL HCL 50 MG TABLET PO PRN (07:30)
[2019-07-23] MEDS: LOSARTAN POTASSIUM 50 MG TAB PO SCH (07:45)
[2019-07-23] MEDS: hydroCHLOROthiazide 25 MG TAB PO SCH (07:45)
[2019-07-23] MEDS: CITALOPRAM 20 MG TAB PO SCH (07:45)
[2019-07-23] MEDS: allopurinoL 300 MG TAB PO SCH (07:45)
[2019-07-23] MEDS: CHOLECALCIFEROL 1,000 UNITS 25 MCG TAB PO SCH (07:45)
[2019-07-23] MEDS: allopurinoL 100 MG TAB PO SCH (07:46)
[2019-07-23] MEDS: ASPIRIN 81 MG ECTAB PO SCH (07:46)
[2019-07-23 08:19] LABS: Hematocrit (blood only) 44.9 % (42-52); Hemoglobin 16.3 g/dL (14.0-18.0); Mean Corpuscular Hgb Conc 36.3 g/dL (32-36); Mean Corpuscular Volume 88.2 fL (80-100); Mean Platelet Volume 10.8 fL (7.4-10.4); Platelet Count 192 K/uL (130-400); RDW Coefficient of Variation 13.3 % (11.5-14.5); RDW Standard Deviation 43.3 fL (36.4-46.3); Red Blood Count 5.09 M/uL (4.7-6.1); White Blood Count 11.26 K/uL (4.8-10.8)
[2019-07-23 08:47] LABS: BUN Creatinine Ratio 14.5 (10-20); Calcium 9.6 mg/dl (8.5-10.1); Creatinine Clr Calc Pharmacy 78.3 ml/min; Est GFR (African American) 79.6; Est GFR (Non-African American) 68.7; Potassium 3.9 mmol/L (3.5-5.1)
[2019-07-23 08:58] LABS: Thyroid Stimulating Hormone 2.63 uIu/ml (0.300-4.500)
[2019-07-23] MEDS: carvediloL 12.5 MG TAB PO SCH ×2 (10:33→20:54)
--- NOTE | 2019-07-23 11:19 | Cardiology Consultation ---
Date of Consultation July 23, 2019 Assessment & Plan (1) Exertional chest pain: Patient presents with symptoms suggestive of crescendo angina in the setting of known coronary artery disease moderate severity by prior cardiac catheterization 2010. Enzymes EKGs do not reflect acute injury. Echocardiogram reflects with preserved LV function with mild aortic stenosis. Will likely need to proceed to diagnostic cardiac catheterization for further assessment. We will keep patient n.p.o. anticipation of possible procedure later today (2) CAD (coronary artery disease): (3) Moderate aortic valve stenosis: (4) KEHINDE on CPAP: (5) CKD (chronic kidney disease), stage II: (6) Dyslipidemia: History of Present Illness Reason for Consultation: Exertional chest pressure, burning Attending Physician: Rudy Tineo MD History of Present Illness Patient is a 69-year-old male with past history which includes 1. Non obstructive coronary artery disease by 05/09/2011 diagnostic cardiac catheterization at [facility], moderate severity 2. Aortic valve with mild to moderate aortic stenosis calcific 3. Hypertension 4. Dyslipidemia, 5. Stage II CKD 6. Gout 7. Obstructive sleep apnea on CPAP Patient presents this admission noting several weeks history of increasing symptoms of exertional chest pressure and burning sensation. Symptoms now becoming substantially limiting with that one episode at rest ultimately patient presented for further evaluation due to complaints. Notes no syncope or near syncope. No tachypalpitations no orthopnea. No worsening peripheral edema. No unexplained fevers or infections though was treated for an upper respiratory infection 1 to 2 weeks ago with [id number] medication. Appetite and weight have been stable. Uses CPAP at night faithfully. No bleeding difficulties no melena medication dysuria hematuria. No recent change in medical therapies Allergies Allergy/AdvReac Type Severity Reaction Status Date / Time No Known Allergies Allergy Unverified 07/22/19 11:30 Home Medications Home Medications Medication Instructions Recorded Confirmed Type allopurinol 100 mg PO DAILY 07/22/19 07/22/19 History allopurinol 300 mg PO QAM 07/22/19 07/22/19 History aspirin 81 mg PO QAM 07/22/19 07/22/19 History atorvastatin 20 mg PO HS 07/22/19 07/22/19 History carvedilol 12.5 mg PO BID 07/22/19 07/22/19 History cholecalciferol (vitamin D3) 1,000 unit PO QAM 07/22/19 07/22/19 History [Vitamin D3] citalopram 20 mg PO QAM 07/22/19 07/22/19 History hydrochlorothiazide 25 mg PO QAM 07/22/19 07/22/19 History losartan 50 mg PO QAM 07/22/19 07/22/19 History nitroglycerin 0.4 mg SUBLINGUAL UD PRN 07/22/19 07/22/19 History Patient History Medical History CAD (coronary artery disease) Cardiac cath 2010 -nonobstructive CAD CKD (chronic kidney disease), stage II Dyslipidemia Gout Hypertension Moderate aortic valve stenosis KEHINDE on CPAP Surgical History H/O cervical spine surgery H/O repair of left rotator cuff Hx of tonsillectomy Family History Mother Heart disease Father Stroke Other Family history non-contributory Social History Preferred Language: Portuguese Communication Ability: Effective Medical Data Entry Clerk Required: No Beliefs That Will Affect Care: None Current Living Situation: Spouse Other Information That Helps Us Care for You: No Feels Safe at Home: Yes Safety Concerns: Feels Safe At This Time Smoking Status: Never smoker Hx Alcohol Use: Yes Alcohol type: beer Alcohol Intake Frequency: Weekly Alcohol Intake Frequency Comment: ~ 5 beers/week Hx Substance Use: No Review of Systems Review of Systems: All systems reviewed & are unremarkable except as noted in HPI & below Results & Data Vital Signs (Past 12 Hours) Vital Signs Temp Pulse Pulse Resp BP Pulse Ox 07/23/19 08:00 66 07/23/19 07:00 36.4 C L 64 16 127/74 98 07/23/19 04:00 36.4 C L 64 16 107/65 97 07/23/19 03:20 69 17 95 07/23/19 00:04 135/69 07/22/19 23:47 36.4 C L 63 20 99/44 L 96 Laboratory Results Laboratory Results - last 24 hr 07/22/19 07/22/19 07/22/19 11:29 11:29 11:29 WBC 11.13 H RBC 5.42 Hgb 17.2 Hct 47.7 MCV 88.0 MCH 31.7 MCHC 36.1 H RDW Std Deviation 43.6 RDW Coeff of Sulaiman 13.6 Plt Count 213 MPV 11.3 H Immature Gran % (Auto) 0.2 Neut % (Auto) 67.9 Lymph % (Auto) 21.7 [place] % (Auto) 6.8 Eos % (Auto) 3.2 Baso % (Auto) 0.2 Immature Gran # (Auto) 0.02 Neut # (Auto) 7.55 H Lymph # (Auto) 2.42 [place] # (Auto) 0.76 H Eos # (Auto) 0.36 Baso # (Auto) 0.02 PT 11.8 INR 1.2 H APTT 27.3 PTT Ratio 1.0 Sodium Potassium Chloride Carbon Dioxide Anion Gap BUN Creatinine Est Cr Clr Drug Dosing Est GFR ( Amer) Est GFR (Non-Af Amer) BUN/Creatinine Ratio Glucose Calcium Magnesium 1.8 Total Bilirubin AST ALT Alkaline Phosphatase Troponin I Total Protein Albumin Globulin Albumin/Globulin Ratio Triglycerides Cholesterol LDL Cholesterol, Calc VLDL Cholesterol, Calc HDL Cholesterol Cholesterol/HDL Ratio Lipase TSH 07/22/19 07/22/19 07/22/19 11:29 17:05 23:26 WBC RBC Hgb Hct MCV MCH MCHC RDW Std Deviation RDW Coeff of Sulaiman Plt Count MPV Immature Gran % (Auto) Neut % (Auto) Lymph % (Auto) [place] % (Auto) Eos % (Auto) Baso % (Auto) Immature Gran # (Auto) Neut # (Auto) Lymph # (Auto) [place] # (Auto) Eos # (Auto) Baso # (Auto) PT INR APTT PTT Ratio Sodium 138 Potassium 3.8 Chloride 102 Carbon Dioxide 31 Anion Gap 5.0 BUN 16 Creatinine 1.11 Est Cr Clr Drug Dosing 76.6 Est GFR ( Amer) 77.0 Est GFR (Non-Af Amer) 66.5 BUN/Creatinine Ratio 14.1 Glucose 123 H Calcium 9.9 Magnesium Total Bilirubin 1.2 H AST 24 ALT 35 Alkaline Phosphatase 133 H Troponin I < 0.015 < 0.015 < 0.015 Total Protein 8.3 H Albumin 4.0 Globulin 4.3 H Albumin/Globulin Ratio 0.9 Triglycerides Cholesterol LDL Cholesterol, Calc VLDL Cholesterol, Calc HDL Cholesterol Cholesterol/HDL Ratio Lipase 103 TSH 07/23/19 07/23/19 07:48 07:48 WBC 11.26 H RBC 5.09 Hgb 16.3 Hct 44.9 MCV 88.2 MCH 32.0 MCHC 36.3 H RDW Std Deviation 43.3 RDW Coeff of Sulaiman 13.3 Plt Count 192 MPV 10.8 H Immature Gran % (Auto) Neut % (Auto) Lymph % (Auto) [place] % (Auto) Eos % (Auto) Baso % (Auto) Immature Gran # (Auto) Neut # (Auto) Lymph # (Auto) [place] # (Auto) Eos # (Auto) Baso # (Auto) PT INR APTT PTT Ratio Sodium 138 Potassium 3.9 Chloride 103 Carbon Dioxide 32 Anion Gap 4.0 BUN 16 Creatinine 1.08 Est Cr Clr Drug Dosing 78.3 Est GFR ( Amer) 79.6 Est GFR (Non-Af Amer) 68.7 BUN/Creatinine Ratio 14.5 Glucose 134 H Calcium 9.6 Magnesium Total Bilirubin AST ALT Alkaline Phosphatase Troponin I Total Protein Albumin Globulin Albumin/Globulin Ratio Triglycerides 124 Cholesterol 124 LDL Cholesterol, Calc 56 VLDL Cholesterol, Calc 25 HDL Cholesterol 43 Cholesterol/HDL Ratio 3 Lipase TSH 2.630 Diagnostic Findings The stress echo is negative for inducible ischemia. Exercise capacity is average . There is a mildly attenuated heart rate response to exercise and flat blood pressure response There is accentuation of inferior lateral ST segment changes present at baseline of uncertain diagnostic significance given baseline abnormalities The left ventricular wall motion is normal. The left ventricular wall motion with stress is normal. The left ventricular ejection fraction increases normally with stress. The left ventricular systolic function is normal. The qualitative LV ejection fraction is 60-64% (normal). The left ventricular diastolic function is mildly abnormal (grade I). Moderate aortic valve stenosis is present.
[2019-07-23] MEDS ORDERED: HEPARIN (PORCINE) 1000 UNIT/ML 10 ML (CATH LAB USE ONLY) ONE (15:24)
[2019-07-23] MEDS ORDERED: NiCARDipine HCL INJ 2.5 MG/ML 10 ML AMP ONE (15:25)
[2019-07-23] MEDS ORDERED: MIDAZOLAM HCL 1 MG/ML 2ML VIAL ONE (15:25)
[2019-07-23] MEDS ORDERED: fentaNYL citrate 100 MCG/2 ML VIAL ONE (15:25)
[2019-07-23] MEDS ORDERED: NITROGLYCERIN/D5W 100MCG/ML 20ML SYR ONE (15:25)
--- NOTE | 2019-07-23 15:49 | Pre Anesthesia Assessment ---
Date of Service July 23, 2019 Pre Sedation Assessment Vital Signs Temp Pulse Pulse Resp BP Pulse Ox 07/23/19 15:20 67 98 07/23/19 11:51 36.4 C L 72 16 116/71 97 07/23/19 08:00 66 07/23/19 07:00 36.4 C L 64 16 127/74 98 07/23/19 04:00 36.4 C L 64 16 107/65 97 07/23/19 03:20 69 17 95 07/23/19 00:04 135/69 07/22/19 23:47 36.4 C L 63 20 99/44 L 96 07/22/19 19:32 36.6 C 68 16 118/61 96 07/22/19 17:54 77 177/70 H Cardiovascular RRR, no murmur, no edema Respiratory normal respiratory effort, lungs clear to auscultation Pre-Sedation Airway Assessment Smoking Status: Never smoker Oral Cavity: + WNL Mallampati Class: III ASA: ASA3 NPO Status Date of Last Intake of Fluids: 07/22/19 Time of Last Intake of Fluids: 17:30 Date of Last Intake of Solid Food: 07/22/19 Procedure Planning Contraindications for Sedation: none Current Medications Reviewed: Yes Notes The planned sedation has been discussed with the patient. Informed Consent was obtained. I have identified the patient, determined the appropriateness of sedation and have assessed the patient immediately prior to the procedure. All medicine(s) and interventions are by my order.
--- NOTE | 2019-07-23 16:34 | Cardiac Catheterization ---
Cardiac Cath Procedure: Brief Procedure Date July 23, 2019 Pre-Procedure Diagnosis Pre-Procedure Diagnosis: Angina and Cardiothoracic Symptom AUC Score AUC Score: 7 Post-Procedure Diagnosis Post-Procedure Diagnosis: Mild CAD Procedure(s) Performed Procedure(s) Performed: Coronary Angiography Manager Research Vasile Berry MD Retail Training Manager(s) Arleen Naylor Estimated Blood Loss Estimated Blood Loss: <15cc Medication(s) Medication(s): Fentanyl (12.5 mcg IV), Heparin (5000 units IV), Lidocaine 1% (Local infiltration access site), Nicardipine (250 mcg intra-arterial after arterial sheath insertion) and Versed (1 mg IV) Preliminary Findings Left dominant coronary anatomy Left main: Normal length and caliber Left anterior descending: Type III in distribution giving rise to 2 moderately large diagonal branches in its proximal third. There is a tortuous segment with mild bridging in its midportion. No obstruction. There are minimal luminal irregularities otherwise. Left circumflex: Large and dominant distribution. Gives rise to a high marginal branch trivial second marginal branch to posterior lateral branches in the posterior descending artery. There is mild luminal irregularities with distal vessels being thin in caliber but no obstruction. Right coronary artery: Nondominant consisting of 2 right ventricular branches Aortic valve not crossed Recommendations Recommendations: Medical Therapy and/or Counseling Specimens Specimens: None Fluids (cc crystalloids) Fluids (cc crystalloids): 70 Anesthesia Start time 1553, stop time 1625 Procedural Complication(s) None Disposition PCU
--- NOTE | 2019-07-23 16:51 | Cardiac Catheterization ---
Cardiac Cath Procedure Full Procedure Date July 23, 2019 Pre-Procedure Diagnosis Pre-Procedure Diagnosis: Angina and Cardiothoracic Symptom AUC Score AUC Score: 7 Post-Procedure Diagnosis Post-Procedure Diagnosis: Mild CAD Procedure(s) Performed Procedure(s) Performed: Coronary Angiography Body Masker Vasile Berry MD Yard General Car Supervisor(s) Arleen Naylor Estimated Blood Loss Estimated Blood Loss: <15cc Medication(s) Medication(s): Fentanyl (12.5 mcg IV), Heparin (5000 units IV), Lidocaine 1% (Local infiltration access site), Nicardipine (250 mcg intra-arterial after arterial sheath insertion) and Versed (1 mg IV) Summary of Findings Left dominant coronary anatomy Left main: Normal length and caliber Left anterior descending: Type III in distribution giving rise to 2 moderately large diagonal branches in its proximal third. There is a tortuous segment with mild bridging in its midportion. No obstruction. There are minimal luminal irregularities otherwise. Left circumflex: Large and dominant distribution. Gives rise to a high marginal branch trivial second marginal branch to posterior lateral branches in the posterior descending artery. There is mild luminal irregularities with distal vessels being thin in caliber but no obstruction. Right coronary artery: Nondominant consisting of 2 right ventricular branches Aortic valve not crossed Impression: Left dominant coronary anatomy with mild luminal irregularities but no obstructive disease Mild to moderate aortic stenosis by echocardiography Hemodynamics Rest Ao:: 139/73 /100 Final Ao: 144/74/61 LV: N/A Recommendations Recommendations: Medical Therapy and/or Counseling Specimens Specimens: None Radiation Exposure (mGy) 2100 Contrast (mls) 65 Fluids (cc crystalloids) Fluids (cc crystalloids): 70 Anesthesia Start time 1553, stop time 1625 Procedural Complication(s) None Disposition PCU I attest to the content of the Intraoperative Record and any orders documented therein. Any exceptions are noted below. ACC Data: Secondary History Teacher Cardiac Status Clinical evaluation leading to the procedure Patient with multiple cardiac risk factors with past mild to moderate coronary disease by remote cardiac catheterization 8 years past with new symptoms of exertional chest pressure and shortness of breath in a crescendo pattern. Stress testing for similar discomfort November 2018 with abnormal EKG findings but no ischemia by echocardiography reflecting disconcordant result CAD Presenation: Stable angina Diagnostic Physicians Name: Vasile Berry MD Closure Device Percutaneous Entry Location: Radial Closure Device: Radial Band Recommendations: Medical Therapy and/or Counseling PCI Indication: Angina despite med therapy
[2019-07-23] MEDS: SODIUM CHLORIDE 0.9% 1000ML 1,000 ML IV SCH ×3 (17:35→22:18)
--- NOTE | 2019-07-23 18:22 | Hospitalist Progress Note ---
Date of Service July 23, 2019 Assessment & Plan (1) Exertional chest pain: Presented with exertional chest pressure + dypspnea. Serial troponins negative. No acute EKG changes. Cardiology consulted. Echo showed mild aortic stenosis, LVEF 60-65%, mild aortic stenosis. Cardiac cath showed nonocclusive coronary disease. Pulmonary embolism unlikely with normal D-dimer. Chest x-ray interpreted as mild pulmonary vascular congestion, but does not seem to have volume overload by exam. (2) CAD (coronary artery disease): Nonocclusive coronary disease per cath. Continue aspirin, carvedilol, losartan, statin. (3) Moderate aortic valve stenosis: Mild-moderate aortic stenosis per echo. Follow-up per Cardiology. (4) Hypertension: BP well-controlled. Continue carvedilol, losartan. (5) Shortness of breath: Cardiac evaluation as noted above. 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 (6) KEHINDE on CPAP: Continue CPAP. (7) Dyslipidemia: LDL-c = 56. Continue atorvastatin. (8) Gout: Continue allopurinol. (9) DVT prophylaxis: Received SQ enoxaparin- hold due to bleeding at cath site. No need to add SCD's at this time if ambulating. Ambulate. (10) Discharge planning issues: Anticipated discharge to home- not this evening because of ongoing bleeding at radial cath site. Family Medicine follow-up with Dr. Schaefer. Cardiology follow-up with [facility]. Subjective Recheck for chest pain + dyspnea on exertion. Patient seen in their room around 1800. Cardiac cath performed this afternoon by Dr. Berry; found to have mild nonocclusive disease. Still having bleeding at cath site when radial band released. Mild cough first thing this morning. No chest pain or dyspnea today. Review of Systems: Constitutional- no fever. Cardiac- no chest pain. Pulmonary- no cough or SOB. GI- no nausea, vomiting, diarrhea Otherwise, as noted above. Physical Exam Constitutional: no acute distress Eyes: + anicteric sclerae Respiratory: no respiratory distress Auscultation: lungs clear to auscultation bilaterally Cardiovascular: Rate/Rhythm: regular rate and regular rhythm Heart Sounds: + murmur (II/ systolic murmur at base); no gallop and no cardiac rub Vessels: no JVD Extremities: + edema (trace pretibial); no calf tenderness Gastrointestinal (Abdomen): normal bowel sounds, soft, nontender, no hepatosplenomegaly Skin: + rash (chronic venous stasis changes lower extremities) Psychiatric: Orientation: alert and oriented x 3 Results & Data Vital Signs (Past 12 Hours) Vital Signs Temp Pulse Pulse Resp BP Pulse Ox 07/23/19 17:49 75 20 124/72 96 07/23/19 17:29 93 H 20 130/77 97 07/23/19 17:14 69 107/57 L 97 07/23/19 17:00 36.3 C L 65 18 139/77 97 07/23/19 16:48 66 16 137/72 96 07/23/19 16:35 70 16 141/79 H 96 07/23/19 15:20 67 98 07/23/19 11:51 36.4 C L 72 16 116/71 97 07/23/19 08:00 66 07/23/19 07:00 36.4 C L 64 16 127/74 98 Laboratory Results Laboratory Results - last 24 hr 07/22/19 07/23/19 07/23/19 23:26 07:48 07:48 WBC 11.26 H RBC 5.09 Hgb 16.3 Hct 44.9 MCV 88.2 MCH 32.0 MCHC 36.3 H RDW Std Deviation 43.3 RDW Coeff of Sulaiman 13.3 Plt Count 192 MPV 10.8 H Sodium 138 Potassium 3.9 Chloride 103 Carbon Dioxide 32 Anion Gap 4.0 BUN 16 Creatinine 1.08 Est Cr Clr Drug Dosing 78.3 Est GFR ( Amer) 79.6 Est GFR (Non-Af Amer) 68.7 BUN/Creatinine Ratio 14.5 Glucose 134 H Calcium 9.6 Troponin I < 0.015 Triglycerides 124 Cholesterol 124 LDL Cholesterol, Calc 56 VLDL Cholesterol, Calc 25 HDL Cholesterol 43 Cholesterol/HDL Ratio 3 TSH 2.630 ECG Additional Comments: EKG performed at 0542 reviewed and demonstrated NSR at 70 / min, no acute changes.
[2019-07-23] MEDS: ATORVASTATIN 20 MG TAB PO SCH (20:54)
[2019-07-23] MEDS: ENOXAPARIN INJ 40 MG/0.4 ML SYR SQ SCH (21:15)
[2019-07-24] MEDS: SODIUM CHLORIDE 0.9% 1000ML 1,000 ML IV SCH ×2 (03:23→10:27)
[2019-07-24 03:52] VITALS: O2SAT 97
[2019-07-24 07:44] VITALS: BP 156/74; PULSE 69; TEMP 98.1
[2019-07-24] MEDS: allopurinoL 300 MG TAB PO SCH (08:29)
[2019-07-24] MEDS: LOSARTAN POTASSIUM 50 MG TAB PO SCH (08:29)
[2019-07-24] MEDS: ASPIRIN 81 MG ECTAB PO SCH (08:29)
[2019-07-24] MEDS: allopurinoL 100 MG TAB PO SCH (08:29)
[2019-07-24] MEDS: CITALOPRAM 20 MG TAB PO SCH (08:29)
[2019-07-24] MEDS: hydroCHLOROthiazide 25 MG TAB PO SCH (08:30)
[2019-07-24] MEDS: carvediloL 12.5 MG TAB PO SCH (08:30)
[2019-07-24] MEDS: CHOLECALCIFEROL 1,000 UNITS 25 MCG TAB PO SCH (08:30)
--- NOTE | 2019-07-24 10:53 | Hospitalist Progress Note ---
Date of Service July 24, 2019 Assessment & Plan (1) Exertional chest pain: Presented with exertional chest pressure + dyspnea. Serial troponins negative. No acute EKG changes. Cardiology consulted. Echo showed mild aortic stenosis, LVEF 60-65%, mild aortic stenosis. Cardiac cath showed nonocclusive coronary disease. Pulmonary embolism unlikely with normal D-dimer. Chest x-ray interpreted as mild pulmonary vascular congestion as discussed below. (2) CAD (coronary artery disease): Nonocclusive coronary disease per cath. Continue aspirin, carvedilol, losartan, statin. (3) CHF (congestive heart failure): Chest x-ray interpreted as mild pulmonary vascular congestion as discussed below. Echo showed mild aortic stenosis, LVEF 60-65%, mild aortic stenosis. Mild acute on chronic left ventricular diastolic heart failure. Change diuretic therapy from HCTZ to furosemide 20 mg 3 times a week. (4) Moderate aortic valve stenosis: Mild-moderate aortic stenosis per echo. Follow-up per Cardiology. (5) Hypertension: BP well-controlled. Continue carvedilol, losartan. (6) Shortness of breath: Cardiac evaluation as noted above. 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 Chest x-ray interpreted as mild pulmonary vascular congestion as discussed above. 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 (7) KEHINDE on CPAP: Continue CPAP. (8) Dyslipidemia: LDL-c = 56. Continue atorvastatin. (9) Gout: HCTZ is being discontinued as noted above. Continue allopurinol. Follow serum uric acid. May be able to decrease allopurinol dosing with discontinuation of HCTZ. (10) DVT prophylaxis: Received SQ enoxaparin. Ambulating. (11) Discharge planning issues: Discharge to home. Family Medicine follow-up with Dr. Schaefer. Cardiology follow-up with [facility]. Subjective Doing well. No further bleeding from right radial cath site. No CP or SOB. Physical Exam Constitutional: no acute distress Eyes: + anicteric sclerae Respiratory: no respiratory distress Auscultation: lungs clear to auscultation bilaterally Cardiovascular: Rate/Rhythm: regular rate and regular rhythm Heart Sounds: + murmur (II/ systolic murmur at base); no gallop and no cardiac rub Vessels: no JVD Extremities: + edema (trace pretibial); no calf tenderness Gastrointestinal (Abdomen): normal bowel sounds, soft, nontender, no hepatosplenomegaly Skin: no rashes, warm and dry + rash (chronic venous stasis changes lower extremities) Psychiatric: Orientation: alert and oriented x 3 Results & Data Vital Signs (Past 12 Hours) Vital Signs Temp Pulse Pulse Resp BP Pulse Ox 07/24/19 07:42 36.7 C 69 22 156/74 H 97 07/24/19 03:50 58 L 16 97 07/24/19 03:16 36.3 C L 63 18 128/78 97 07/23/19 23:38 36.4 C L 70 18 142/81 H 98
--- NOTE | 2019-07-24 12:48 | Cardiology Progress Note ---
Date of Service July 24, 2019 Assessment & Plan (1) Exertional chest pain: Presenting with symptoms suggestive of crescendo angina in the setting of known coronary artery disease. Enzymes and EKGs not reflective of an acute injury. Echocardiogram reflects with preserved LV function with mild aortic stenosis. Diagnostic cardiac catheterization with mild nonobstructive coronary artery disease. Continue medical management (2) CAD (coronary artery disease): See above (3) Moderate aortic valve stenosis: Continue routine follow-up (4) KEHINDE on CPAP: Continue CPAP (5) Dyslipidemia: Continue statin (6) Hypertension: ? Volume overload on presentation. HCTZ (25 mg/day) changed to Furosemide 20 mg on MWF (7) CKD (chronic kidney disease), stage II: Outpatient follow-up in [facility] Patient seen and examined. Chart, medications, telemetry reviewed. Patient admitted to the hospital with acute dyspnea and discomfort in the setting of prolonged respiratory tract infection symptoms as well as activities above his norm. Diagnostic cardiac catheterization, via right radial approach, on July 23, 2019 revealed mild nonobstructive coronary artery disease. Anxious for discharge. Notes ongoing URI type symptoms. Review of Systems Review of Systems: All systems reviewed & are unremarkable except as noted in HPI & below Respiratory: + cough, + chest congestion, + dyspnea and + dyspnea on exertion; no hemoptysis Cardiovascular: no orthopnea, no palpitations and no syncope Physical Exam Physical Exam: General: A&Ox3. NAD. HEENT: Normocephalic. Atraumatic. PER. C onjunctiva pink, sclera clear. No carotid bruits. No JVD. Heart: RRR. Grade II/ systolic ejection murmur. I did not appreciate a diastolic murmur. No rub. No gallop. PMI is nondisplaced. Lungs: Diminished blear to auscultation. Abdomen: +BS. Extremities: Varocosities distally, bilaterally. Chronic stasis changes. Limited neurological examination is without focal deficits. Right radial access site is OK. Posterior tibial=2/4. Results & Data Vital Signs (Past 12 Hours) Vital Signs Temp Pulse Pulse Resp BP Pulse Ox 07/24/19 11:40 36.7 C 69 22 156/74 H 97 07/24/19 07:42 36.7 C 69 22 156/74 H 97 07/24/19 03:50 58 L 16 97 07/24/19 03:16 36.3 C L 63 18 128/78 97
--- NOTE | 2019-07-25 08:50 | Discharge Summary ---
Date of Service Date of Admission: 07/22/19 Date of Discharge: 07/24/19 Admission HPI Per Admitting Provider 69 year old male who presents to the ED with reports of chest pain. Patient reports that he was having URI symptoms for about 6 weeks. The productive cough has resolved however patient developed chest pain over the past week. He described the pain as being located midsternum with some radiation into the left chest. Patient noted the pain to be worse while he was "doing chores" and while hunting. Pain was severe at times with radiation into the left arm and jaw at times. He had associated diaphoresis. Describes the pain as burning and aching. Has chronic exertional shortness of breath which is unchanged from baseline. Denies orthopnea and lower extremity edema. No abdominal pain, nausea, vomiting, or diarrhea. Denies fever and chills. No urinary symptoms. In the ED, topical nitro was placed on the patient and he reports he is pain free. He was also given a full dose aspirin. Initial troponin is negative, EKG does not show any acute ST changes. Patient is hemodynamically stable. Principal Diagnosis chest pain- NM and PE ruled out. nonocclusive coronary artery disease acute on chronic left ventricular diastolic heart failure mild-moderate aortic stenosis Discharge Data Allergies Allergy/AdvReac Type Severity Reaction Status Date / Time No Known Allergies Allergy Unverified 07/22/19 11:30 Consultations 07/22/19 12:48 ED Decision to Admit Stat 07/22/19 14:56 Consult Cardiology Routine Procedures Performed Operation Date: 07/23/19 16:00 Actual Procedures p Cath, Coronaries ONLY (no LV) - Vasile Berry MD s Cineradiography w/Routine Exam - Vasile Berry MD Ordered Studies 07/23/19 15:26 CL Cath Imgs for PACS use only Routine Hospital Course (1) Exertional chest pain: Presented with exertional chest pressure + dyspnea. Serial troponins negative. No acute EKG changes. Cardiology consulted. Echo showed mild aortic stenosis, LVEF 60-65%, mild aortic stenosis. Cardiac cath showed nonocclusive coronary disease. Pulmonary embolism unlikely with normal D-dimer. Chest x-ray interpreted as mild pulmonary vascular congestion as discussed below. (2) CAD (coronary artery disease): Nonocclusive coronary disease per cath. Continue aspirin, carvedilol, losartan, statin. (3) CHF (congestive heart failure): Chest x-ray interpreted as mild pulmonary vascular congestion as discussed below. Echo showed mild aortic stenosis, LVEF 60-65%, mild aortic stenosis. Mild acute on chronic left ventricular diastolic heart failure. Changed diuretic therapy from HCTZ to furosemide 20 mg 3 times a week. (4) Moderate aortic valve stenosis: Mild-moderate aortic stenosis per echo. Follow-up per Cardiology. (5) Hypertension: BP well-controlled. Continue carvedilol, losartan. (6) Shortness of breath: Cardiac evaluation as noted above. Chest x-ray interpreted as mild pulmonary vascular congestion as discussed above. 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 (7) KEHINDE on CPAP: Continue CPAP. (8) Dyslipidemia: LDL-c = 56. Continue atorvastatin. (9) Gout: HCTZ discontinued as noted above. Continue allopurinol. Follow serum uric acid. May be able to decrease allopurinol dosing with discontinuation of HCTZ. (10) DVT prophylaxis: Received SQ enoxaparin. Ambulating. (11) Discharge planning issues: Discharged to home. Family Medicine follow-up with Dr. Schaefer. Cardiology follow-up with [facility]. Total Time Total Time Spent Total Time Spent (In Minutes): 30 Discharge Plan Discharge Items Patient Disposition: Home - Self-Care Reason For Visit: CHEST PAIN AND TROUBLE BREATHING Discharge Diagnosis: no sign of heart attack heart murmur- mild to moderate aortic stenosis small amount of fluid in the lungs- congestive heart failure Condition on Discharge: Good Activity: As commented below Activity Comment: gradually increase activity as tolerated Non-emergency contact: Primary Care Provider, Hospitalist and Saddle Stitch Operator Call non-emergency contact if: you have any medication questions, your symptoms worsen and your temperature is above 101 Follow-up/Referrals: Asad Schaefer MD [Primary Care Provider] - (07/28/19 at 3:00) Diet: Heart Healthy Addtl Attending Provider Instructions: MEDICATION CHANGES: Stop hydrochlorothiazide. New water pill is furosemide (Lasix). Take 20 mg 3 times a week on Mon-Wed-Fri. SUMMARY OF TEST RESULTS: Chest x-ray showed a little fluid in the lungs (congestive heart failure). Echocardiogram showed heart murmur (mild-moderate aortic stenosis). Heart catheterization showed mild blockage in coronary arteries, but no severe blockage. RECOMMENDATIONS FOR FOLLOW-UP: Please ask Dr. Schaefer to schedule a follow-up appointment with [facility] for Cardiology follow-up. HEART CATHETERIZATION INSTRUCTIONS: ACTIVITY RECOMMENDATIONS: Excess manipulation of the wrist should be avoided for the next 24-48 hours. * No lifting over 2 pounds (approximately a 1/2 gallon of milk) with the utilized arm for 24 hours. * No strenuous activity such as bowling or tennis for 3 days. * Keep the site of the procedure covered with a bandage for 24 hours. *You may shower the day after the procedure. Do not take a tub bath or submerge the puncture site in water for the next 3 days. *Do not operate any motorized equipment for 3 days. SPECIAL CARE INSTRUCTIONS: The site may be slightly bruised and sore following your procedure. Should any of the following occur, contact the Dr. who performed your procedure. 1. Redness/inflammation, swelling, chills, or fever, or colored drainage at procedure site within 3-7 days after your procedure. 2. Coldness, discoloration, ongoing numbness, severe pain, or swelling. Expect mild tingling of hand and tenderness at the puncture site for up to three days. If this persists beyond three days, or other symptoms develop, notify the Dr. who performed your procedure. BLEEDING: If the procedure site on your wrist begins to bleed, do not panic 1. Place 1 or 2 fingers firmly just slightly above the insertion site to stop the bleeding. You may be able to feel your pulse as you hold pressure. 2. Lift your finger after 5 minutes to see if the bleeding has stopped. 3. Once the bleeding has stopped, gently wipe the wrist area clean with a bandage. * If the bleeding from your wrist does not stop after 10 minutes, or if there is a large amount of bleeding or spurting, call 911 (do not drive yourself to the hospital). SKIN IRRITATION: * You may experience some redness and/or swelling in the area where radiation was administered. If any skin irritation occurs, please contact your family physician. FOLLOW UP VISIT: Keep any scheduled doctor appointments. Call 911 and go to the Emergency Room if: * You have tightness or pain in your chest that does not go away with rest or Nitroglycerin * You are very short of breath even with rest INSTRUCTIONS FOR CONGESTIVE HEART FAILURE: Call your doctor if any of the following symptoms or problems start or get worse: * Shortness of breath or difficulty breathing * Wake up at night short of breath * Chest pain * Cough * Swelling of your hands, fee, or legs * More fatigued or tired with your normal activity * Palpitations - sudden fast heart beats WEIGHT * Weigh yourself every morning after using the bathroom. * Use the same scale. * Wear the same amount of clothing. * Write your weight down on your chart. * Call your doctor if you gain more than 2-3 pounds in 1-2 days. MEDICATIONS * Use this discharge instruction sheet for instructions. * Take your medications at the time your doctor ordered. * Do not skip a dose of your medicines. * If you miss a dose of medicine, take as soon as possible, but DO NOT DOUBLE A DOSE. * Read your medicine information when you get home. * Know all of the side effects of your medicine. * Call your doctor's office if you have any side effects. * Be sure all of your doctors know what medicine and herbs you take (including cold, flu, and herbal medicine). * Pain Medicine: If you do not get relief from your pain, please call your doctor for help. Take the following with you to your follow-up doctor appointments: * Weight Chart * Medication List * List of questions Do not drink excessive alcohol, beer or wine. OTHER INSTRUCTIONS: Seek medical attention if you have: * temperature above 101 * chest pain or trouble breathing * abdominal pain, nausea, vomiting * diarrhea, dark stools or bloody stools * any unanswered questions or concerns Call 911 if symptoms are severe. Please take good care of yourself. Call if you have any questions or problems. You can reach a [facility] hospitalist on duty at [facility] 24 hours a day by calling [phone]. My cell # is [phone]. Pending Studies at Discharge: No Stand-Alone Forms: Call Back Authorization, My [facility], Smoking Cessation Medications and DC Order Prescriptions: New furosemide 20 mg tablet See Rx Instructions .ROUTE .COMPLEX Qty: 10 RF: 5 Continued carvedilol 12.5 mg Tablet 12.5 mg PO BID RF: 0 aspirin 81 mg Tablet,Delayed Release (Dr/Ec) 81 mg PO QAM RF: 0 nitroglycerin 0.4 mg Tablet, Sublingual 0.4 mg sublingual UD PRN (Reason: Chest Pain) RF: 0 allopurinol 300 mg Tablet 300 mg PO QAM RF: 0 cholecalciferol (vitamin D3) [Vitamin D3] 25 mcg (1,000 unit) Tablet 1,000 unit PO QAM RF: 0 losartan 50 mg Tablet 50 mg PO QAM RF: 0 atorvastatin 20 mg Tablet 20 mg PO HS RF: 0 citalopram 20 mg Tablet 20 mg PO QAM RF: 0 allopurinol 100 mg Tablet 100 mg PO DAILY RF: 0 Discontinued hydrochlorothiazide 25 mg Tablet 25 mg PO QAM RF: 0 Discharge Orders: Discharge Order (Routine); Ordered 07/24/19 Ordered By: Rudy Tineo Admission Data Admit Date/Time: 07/22/19 13:31 Attending Provider: Rudy Tineo Admit Provider: Anson Bacon Primary Care Provider: Asad Schaefer Other Providers: Anson Bacon ; Simone Rawls Other Interventions: Discharge Summary Assessment (RN) Last Done: 07/24/19 11:40 DC Date/Time DO NOT enter until pt leaves facility: 07/24/19 12:13
== END 2019-07-24 12:13 | disposition home or self-care (01) ==
LOC: 2S 09:58 → ED 09:58 → SUATTDRO 13:31 → 2S 14:33
PROC: CLB.CCO (2019-07-23 16:00)